=== PATIENT | male | born 1995 | race Caucasian/White ===

== ENCOUNTER → 2021-10-31 | Outpatient (CLI) | payer OTHER ==
[~2021-10-31] MED LIST: LORA10ER PO; SULF10OPSA OU
== END | disposition home or self-care (01) ==
LOC: LAB 15:12 → LAB SHORT 15:12
DX: N39.0 Urinary tract infection, site not specified (principal)
CPT/HCPCS: 87077; 87086; 87186

== ENCOUNTER → 2021-12-23 | Outpatient (CLI) | payer OTHER ==
[2021-12-23 17:16] LABS: Source, Urine Clean Catch
[2021-12-23 18:58] LABS: Bacteria Mod /hpf; Mucus Light (0-Heavy); Red Blood Cells, Urine 0-2 /hpf (0-2); Squamous Epithelial Cells Rare /hpf (Few)
== END | disposition home or self-care (01) ==
LOC: LAB 16:48 → LAB SHORT 16:48
PROVIDERS: Family Medicine
DX: R31.9 Hematuria, unspecified (principal)
CPT/HCPCS: 81015; 87086

== ENCOUNTER → 2023-12-12 | Outpatient (CLI) | payer OTHER | LOC: LAB SHORT 14:33 → LAB 14:33 | DX: L08.0 Pyoderma (principal) | CPT/HCPCS: 87070; 87205 ==